=== PATIENT | female | born 1950 | race Caucasian/White ===

== ENCOUNTER 2019-01-14 06:23 | Day surgery (SDC) | payer MEDICARE, BC ==
[~2019-01-14 06:23] MED LIST: Lactated Ringers 1,000 ML IV SCH; Sodium Chloride 0.9% 10 ML Syringe FLUSH PRN
[2019-01-14] MEDS ORDERED: Midazolam 1 MG/ML 2 ML SDV ONE (07:49)
[2019-01-14] MEDS ORDERED: Propofol 200 MG/20 ML SDV ONE (07:49)
[2019-01-14] MEDS ORDERED: fentaNYL 100 MCG/2 ML SDV ONE (07:49)
[2019-01-14] MEDS ORDERED: Lidocaine 2% 100 MG/5 ML Syringe ONE (07:52)
--- NOTE | 2019-01-14 09:17 | OR ---
PRE-OPERATIVE DIAGNOSIS: Screening colonoscopy. This is the patient's first colonoscopy, although she has had some previous normal FIT stool cards. There is a maternal aunt with history of colon cancer. POST-OPERATIVE DIAGNOSIS: Somewhat tortuous colon, but otherwise normal. PROCEDURE: Colonoscopy. SURGEON: Ky Centeno M.D. ANESTHESIA: Monitored anesthesia care. BOWEL PREP: Good. DESCRIPTION OF PROCEDURE: Lizzie is a 68-year-old female, who was brought to the endoscopy suite after discussing risks and benefits of the procedure. Informed consent was obtained for conscious sedation and colonoscopy with or without biopsy and/or polypectomy. We also discussed possibility of missed lesions. Pre-procedure exam was unremarkable. IV, oxygen, and monitors were placed. The patient was placed in the left lateral decubitus position. Sedation was administered and a digital rectal exam was performed which was unremarkable except for some noninflamed external hemorrhoidal skin tags. Colonoscope was passed into the rectum and slowly advanced all the way to the cecum. Colon was somewhat tortuous. Cecum was viewed and photographed. The colonoscope was slowly withdrawn and the mucosa was closed observed in a direct circumferential manner. The ascending colon was unremarkable. The transverse colon was unremarkable. The descending colon was unremarkable. The sigmoid colon was unremarkable. Retroflexion was performed and rectal mucosa was unremarkable. Scope was removed. The patient tolerated the procedure well. The patient was monitored until that baseline status. Discharge instructions were reviewed and the patient was discharged in good condition. COMPLICATIONS: None. TOTAL TIME: 24 minutes. ESTIMATED BLOOD LOSS: None. RECOMMENDATIONS/FOLLOW-UP: Recommend repeat screening colonoscopy again in 10 years barring any interval changes in personal symptoms or family history in first-degree relatives. I would like to kindly thank Dr. Eugene for this referral. DMB: 01/14/2019 08:41:03 MODL: 01/14/2019 09:07:00 /[id number]
== END 2019-01-14 09:30 | disposition home or self-care (01) ==
LOC: VM.SDS 06:23
PROVIDERS: ATTEND Family Medicine
DX: Z12.11 Encounter for screening for malignant neoplasm of colon (principal); Q43.8 Other specified congenital malformations of intestine; K64.4 Residual hemorrhoidal skin tags; I10 Essential (primary) hypertension; I65.23 Occlusion and stenosis of bilateral carotid arteries; E11.9 Type 2 diabetes mellitus without complications; E78.5 Hyperlipidemia, unspecified; E04.9 Nontoxic goiter, unspecified; E78.00 Pure hypercholesterolemia, unspecified; F41.9 Anxiety disorder, unspecified; F32.9 Major depressive disorder, single episode, unspecified; E66.9 Obesity, unspecified; Z68.31 Body mass index [BMI] 31.0-31.9, adult; Z79.82 Long term (current) use of aspirin; Z79.84 Long term (current) use of oral hypoglycemic drugs; Z79.899 Other long term (current) drug therapy
CPT/HCPCS: 00812; 82962; G0121; J2001; J2250; J2704; J3010; J7120